=== PATIENT | male | born 1995 | race Caucasian/White ===

== ENCOUNTER 2024-08-28 21:36 | Inpatient (IN) | payer OTHER, SELFPAY ==
--- OUTSIDE RECORDS SUMMARY | 2024-08-28 21:39 | XMS_ITS | CONTINUITY OF CARE DOCUMENT ---
Author Name olinda prakash Address Unknown Organization [facility] Address [address] [place] [address] Phone [phone] Care Team Providers Care Claims Attorney Name Role Phone olinda prakash Unavailable Unavailable
--- OUTSIDE RECORDS SUMMARY | 2024-08-28 21:39 | XMS_ITS | Continuity of Care Document ---
Author Organization [facility] Address [address] [place] [address] Phone Care Team Providers Care Professor Of Sociology Name Role Phone Gonzales Phillips MD Unavailable Unavailable Advance Directives Directive Yes / No Effective Date File Name No Information Encounters Encounter Description Practice Location Reason(s) For Visit Diagnoses Date Provider Providers Copied on Encounter [facility], [address], [place], [place], [id number], [place] tel:[phone] [address] [facility] No Information 1 6 Jacqueline Rolon. [address], [place], [place], [address], [place]. tel:[phone] Family History Family Member Type Diagnosis Age At Onset No Information Payers Payer name Insurance type Covered alliance party ID Authoriza tion(s) Medicaid [facility] [id number] Social History Type Description Quantity Date Captured Comments Sex Male Smoking Status No Information Chief Complaint And Reason For Visit No Information Reason For Referral Reason For Referral No Information History Of Present Illness Encounter Date Complaint History Of Prese nt Illness No Information Functional Status Date Functional Assessmen t No Information Instructions Date Instruction Additional Infor mation No Information Assessments Type Assessment Date No Information Patient Care Teams Name Effective Dates (start - stop) Status Members No Information
[2024-08-28 21:42] VITALS: BP 117/49; PULSE 99; RESP 16; TEMP 36.9; O2SAT 92
--- NOTE | 2024-08-28 21:59 | PC.NURSE ---
vrbo narcan 0.4 x 2 doses intranasal
[2024-08-28] MEDS: NALOXONE HCL 0.4 MG/ML VIAL 0.8 MG (22:00)
[2024-08-28 22:05] VITALS: PULSE 107; PULSE 97; RESP 13; RESP 16; O2SAT 98
[2024-08-28 22:12] VITALS: BP 133/76
--- NOTE | 2024-08-28 22:15 | ED.GENADULT ---
HPI - General Adult General Chief complaint: Overdose Stated complaint: Drug use-Fentanyl/Speed ball Time Seen by Provider: 08/28/24 21:59 History of Present Illness HPI narrative: Patient is a 29-year-old male who presents emergency department this evening after being pulled over by PD for driving erratically. Patient was noted to be altered and was brought to our facility for further evaluation due to drug abuse/overdose. Per report, they did find a speedball inpatient belongings. Patient does appear to be under the influence of drugs with pinpoint pupils. Patient does have multiple areas of cellulitis to his bilateral forearms where he states that he injected IV drugs. States that he injects whatever he can get his hands on. He will respond to touch. Related Data Allergies Allergy/AdvReac Type Severity Reaction Status Date / Time No Known Allergies Allergy Unverified 03/05/23 11:24 Review of Systems Review of Systems: All systems are reviewed and are negative unless stated otherwise in the HPI. [facility] Social History Social History Substance use type: crack/cocaine, heroin, amphetamines, sedatives, opiates and methamphetamine Exam Narrative: General: Alert, awake, afebrile, drowsy, intoxicated/under the influence of drugs. HEENT: PERRL and pin point, no rhinorrhea, no post nasal drip, oropharynx clear. Neck: Trachea midline, no JVD, no lymphadenopathy. Cardiovascular: Regular rate and rhythm, no murmurs, rubs or gallops, no peripheral edema. Respiratory: Clear to auscultation bilaterally, no tachypnea, no wheezing, no rhonchi, no rubs, no respiratory distress. Abdomen: Soft, nontender, nondistended, no rebound, no guarding, no peritoneal signs. Musculoskeletal: No joint swelling or deformity, normal muscle tone. Skin: Wounds to the bilateral arms consistent with cellulitis multiple small abscesses were patient injected IV drugs. Psychiatric: Under the influence of drugs, drowsy, will respond to name and will answer some questions then will doze off, non combative. Neurological: Alert and oriented to person and place. Follows some commands. No focal deficits within the limitations of the neurological examination. Course Vital Signs Vital signs: Vital Signs Temperature 98.5 F 08/28/24 21:42 Pulse Rate 99 08/28/24 21:42 Respiratory Rate 16 08/28/24 21:42 Blood Pressure 117/49 L 08/28/24 21:42 Pulse Oximetry 92 08/28/24 21:42 Oxygen Delivery Room Air 08/28/24 21:42 Temperature 98.5 F 08/28/24 21:42 Pulse Rate 73 08/29/24 02:15 Respiratory Rate 23 H 08/29/24 02:15 Blood Pressure 139/66 08/29/24 02:15 Pulse Oximetry 96 08/29/24 02:15 Oxygen Delivery Room Air 08/28/24 22:05 Medical Decision Making MDM Narrative Medical decision making narrative: The patient was evaluated by myself in the emergency department. History is obtained from patient who is an independent historian and physical exam was performed. External medical records were reviewed at this time. IV was established and pertinent tests were ordered. Patient was administered a total of 0 0.8 of intranasal Narcan and 2 mg of IV Narcan with improvement of his symptoms. EKG was obtained which revealed sinus rhythm rate of 80 beats per minute, no evidence of acute ischemia. EKG was independently interpreted by me and is currently pending official cardiology read. Laboratory results obtained revealing no acute process. Urinalysis revealed trace ketones, urine drug screen positive for opiates and benzos. ABG revealed a CO2 of 40, PO2 of 69 O2 saturation 94.4. Differential diagnosis considerations include polysubstance intoxication. Overdose, drug intoxication. Comorbidities impacting this visit include history of IV drug use. I have evaluated and discussed social determinants of health with the patient that could potentially impact subsequent diagnosis and treatment plans. On repeat assessment of the patient, reevaluation revealed that the patient is doing well and is in no acute distress. Patient symptoms have improved since he arrived to our emergency department. Repeat vital signs were all reviewed and noted to be stable. Case was discussed with the on-call hospitalist Dr. Page and the on-call professor criminal justice Dr. Martel at 0332 who accepted IMU admission. Patient was admitted in stable condition. Vital Signs Vital Signs: Vital Signs Temperature 98.5 F 08/28/24 21:42 Pulse Rate 99 08/28/24 21:42 Respiratory Rate 16 08/28/24 21:42 Blood Pressure 117/49 L 08/28/24 21:42 Pulse Oximetry 92 08/28/24 21:42 Oxygen Delivery Room Air 08/28/24 21:42 Temperature 98.5 F 08/28/24 21:42 Pulse Rate 73 08/29/24 02:15 Respiratory Rate 23 H 08/29/24 02:15 Blood Pressure 139/66 08/29/24 02:15 Pulse Oximetry 96 08/29/24 02:15 Oxygen Delivery Room Air 08/28/24 22:05 Lab Data 08/28/24 22:11 08/28/24 22:11 Labs: Lab Results 08/28/24 08/28/24 08/29/24 Range/Units 22:11 23:25 03:47 WBC 10.2 H (4.5-10.0) K/mm3 RBC 4.70 (4.6-6.20) M/mm3 Hgb 13.6 L (14.0-18.0) g/dL Hct 43.0 (42.0-52.0) % MCV 91.5 (80-100) fl MCH 28.9 (26-34) pg MCHC 31.6 L (32-36) g/dl RDW 13.1 (11.5-14.5) % Plt Count 313 (150-375) k/mm3 MPV 10.5 H (7.4-10.4) fl Immature Gran % (Auto) 0.3 (0-0.5) % Neut % (Auto) 70.8 (45.5-73.1) % Lymph % (Auto) 22.3 (18.3-44.2) % Rich % (Auto) 5.3 (2.6-8.5) % Eos % (Auto) 1.0 (0-4.4) % Baso % (Auto) 0.3 (0.2-1.2) % Lymph # (Auto) 2.28 (0.9-3.2) K/mm3 Rich # (Auto) 0.5 (0.1-0.6) K/mm3 Eos # (Auto) 0.1 (0-0.3) K/mm3 Baso # (Auto) 0.0 (0.0-0.1) K/mm3 Abs Immat Gran (auto) 0.03 (0.00-0.031) K/mm3 Absolute Neuts (auto) 7.3 H (1.3-6.7) K/mm3 Absolute Nucleated RBC 0.000 (0.0-0.012) K/mm3 Nucleated RBC % 0.0 (0.0-0.2) % % Immature Plt Fraction 4.5 (0.9-11.2) % Methemoglobin 0.2 (0-1.5) %THb Sodium 139 (137-145) mmol/L Potassium 4.4 (3.4-5.0) mmol/L Chloride 107 (98-107) mmol/L Carbon Dioxide 21 L (22-30) mmol/L Anion Gap 11 (4-12) mmol/L BUN 9 (9-20) mg/dL Creatinine 0.89 (0.7-1.3) mg/dL Estim Creat Clear Calc 116 ml/min Estimated GFR > 60 (59 - ) Glucose 110 (65-110) mg/dL Calcium 9.5 (8.4-10.2) mg/dL Magnesium 2.0 (1.6-2.3) mg/dL Total Bilirubin 0.5 (0.2-1.3) mg/dL AST 33 (17-59) U/L ALT 32 (6-50) U/L Alkaline Phosphatase 72 (38-126) U/L Total Protein 7.6 (6.3-8.2) g/dL Albumin 4.0 (3.5-5.1) g/dL Urine Color Dark yellow (Yellow) Urine Appearance Clear (Clear) Urine pH 7.5 (5.0-9.0) Ur Specific [place] 1.024 (1.001-1.035) Urine Protein Negative (Negative) mg/dL Urine Glucose (UA) Negative (Negative) mg/dL Urine Ketones Trace H (Negative) mg/dL Ur Blood (Man) Negative (Negative) Urine Nitrate Negative (Negative) Urine Bilirubin Negative (Negative) Urine Urobilinogen 1.0 (<2.0) mg/dL Leukocyte Esterase Rfl Negative (Negative) ALEXIS/UL Salicylates < 1.0 L (2-20) mg/dL Urine Opiates Screen Positive A (Negative) Urine Methadone Screen Negative (Negative) Acetaminophen < 10 L (10-30) ug/mL Ur Barbiturates Screen Negative (Negative) Ur Phencyclidine Scrn Negative (Negative) Ur Amphetamine Screen Positive (Negative) U Benzodiazepines Scrn Positive A (Negative) Urine Cocaine Screen Negative (Negative) U Cannabinoids Screen Negative (Negative) Ethyl Alcohol < 10 (<10) mg/dL ABG Data ABG results: 08/29/24 03:47 Puncture Site Right radial ABG pH 7.423 ABG pCO2 40.8 ABG pO2 69.9 L ABG PO2/FiO2 Ratio 3.33 ABG HCO3 26.0 ABG O2 Saturation 94.4 L ABG O2 Content 19.0 ABG Base Excess 1.5 A-a Gradient 31.0 Oxyhemoglobin 90.5 Carboxyhemoglobin 3.5 H Reduced Hemoglobin 5.8 H Total Hemoglobin 14.9 O2 Delivery Device Room air O2 Liters/Min Not Reportable FiO2 21 Discharge Plan Discharge Clinical Impression: Drug overdose, Opiate overdose Patient Disposition: Still a Patient Condition: Improved Patient Language: Urdu Follow-up/Referrals: UNKNOWN,DOCTOR [Primary Care Provider] - Time of Disposition: 04:02
[2024-08-28 22:19] LABS: Basophils Percent Auto 0.3 % (0.2-1.2); Eosinophils Absolute Auto 0.1 K/mm3 (0-0.3); Hemoglobin 13.6 g/dL (14.0-18.0); Immature Granulocyte Absolute 0.03 K/mm3 (0.00-0.031); Immature Granulocyte Percent A 0.3 % (0-0.5); Immature Platelet Fraction Pct 4.5 % (0.9-11.2); Lymphocytes Absolute Auto 2.28 K/mm3 (0.9-3.2); Lymphocytes Percent Auto 22.3 % (18.3-44.2); Mean Corpuscular HGB Conc 31.6 g/dl (32-36); Mean Corpuscular Hemoglobin 28.9 pg (26-34); Mean Corpuscular Volume 91.5 fl (80-100); Mean Platelet Volume 10.5 fl (7.4-10.4); Monocytes Absolute Auto 0.5 K/mm3 (0.1-0.6); Monocytes Percent Auto 5.3 % (2.6-8.5); Neutrophils Absolute Auto 7.3 K/mm3 (1.3-6.7); Neutrophils Percent Auto 70.8 % (45.5-73.1); Platelet Count Result 313 k/mm3 (150-375); Red Cell Distribution Width 13.1 % (11.5-14.5); White Blood Count 10.2 K/mm3 (4.5-10.0)
[2024-08-28 22:27] LABS: Acetaminophen < 10 ug/mL (10-30); Ethanol < 10 mg/dL (<10); Salicylate < 1.0 mg/dL (2-20)
[2024-08-28 22:30] LABS: Alanine Aminotransferase 32 U/L (6-50); Alkaline Phosphatase 72 U/L (38-126); Anion Gap 11 mmol/L (4-12); Aspartate Amino Transferase 33 U/L (17-59); Bilirubin,Total 0.5 mg/dL (0.2-1.3); Blood Urea Nitrogen 9 mg/dL (9-20); Calcium 9.5 mg/dL (8.4-10.2); Carbon Dioxide 21 mmol/L (22-30); Chloride 107 mmol/L (98-107); Estimated CRCL calculation 116 ml/min; Estimated Glomerular Filt Rate > 60; Glucose 110 mg/dL (65-110); Potassium 4.4 mmol/L (3.4-5.0); Sodium 139 mmol/L (137-145); Total Protein 7.6 g/dL (6.3-8.2)
[2024-08-28 22:31] VITALS: BP 101/57; PULSE 86; RESP 18; O2SAT 97
--- OUTSIDE RECORDS SUMMARY | 2024-08-28 22:37 | XMS_ITS | Continuity of Care Document ---
Author Organization [facility] Address [address] [place] [address] Phone Care Team Providers Care Senior Formulation Scientist Name Role Phone Gonzales Phillips MD Unavailable Unavailable Advance Directives Directive Yes / No Effective Date File Name No Information Encounters Encounter Description Practice Location Reason(s) For Visit Diagnoses Date Provider Providers Copied on Encounter [facility], [address], [place], [place], [id number], [place] tel:[phone] [address] [facility] No Information 1 6 Jacqueline Rolon. [address], [place], [place], [address], [place]. tel:[phone] Family History Family Member Type Diagnosis Age At Onset No Information Payers Payer name Insurance type Covered republican ID Authoriza tion(s) Medicaid [facility] [id number] Social History Type Description Quantity Date Captured [...]
--- OUTSIDE RECORDS SUMMARY | 2024-08-28 22:37 | XMS_ITS | CONTINUITY OF CARE DOCUMENT ---
Author Name olinda prakash Address Unknown Organization [facility] Address [address] [place] [address] Phone [phone] Care Team Providers Care Sports Official Name Role Phone olinda prakash Unavailable Unavailable
--- NOTE | 2024-08-28 22:43 | ECG_ITS ---
Test Date: 2024-08-28 23:13:29 Measurements Intervals [place] Rate: 80 P: 9 ME: 163 QRS: 43 QRSD: 93 T: 21 QT: 366 QTc: 424 Interpretive Statements SINUS RHYTHM MINIMAL Q WAVES- INFERIOR LEADS BORDERLINE ECG No previous ECG available for comparison Electronically Signed On 08-29-2024 06:02:05 CDT by Vinny May D.O.
[2024-08-28 22:45] VITALS: BP 101/57; PULSE 84; RESP 16; O2SAT 96
[2024-08-28] MEDS: NALOXONE HCL INJ 2 MG/2 ML AMP 1 MG IV PUSH (23:24)
[2024-08-28 23:33] LABS: Add Urine Microscopic? YES; Appearance Urine Clear (Clear); Bilirubin Urine Negative (Negative); Blood Urine Negative (Negative); Color Urine Dark Yellow (Yellow); Glucose Urine UA Negative (Negative); Ketones Urine Trace mg/dL (Negative); Leukocyte Esterase Ur Negative LEU/UL (Negative); Nitrate Urine Negative (Negative); Protein Urine Negative (Negative); Specific Grav Ur 1.024 (1.001-1.035); pH Urine 7.5 (5.0-9.0)
--- NOTE | 2024-08-28 23:57 | PC.NURSE ---
upon several RNs and phlebotomy attempting to get blood cultures pt became increasingly combative and stating I just want to leave STOP. security at bedside to help with patient aggression. mtuliple attempts were tried for blood cultures and unsuccessful at this time. pt was unable to answer orientation questions correctly at this time and without prolonged hesitation. edp dr. Justice aware and at bedside and stated patient is unable to leave at this time due to not being stable.
[2024-08-29] VITALS (21 sets, daily range): BP systolic 113–146; BP diastolic 52–78; PULSE 62–87; RESP 17–26; TEMP 36.2–36.4; O2SAT 93–99; BMI 32.2
[2024-08-29] LABS: Barbiturate Screen Urine Negative (Negative); Benzodiazepines Screen Urine Positive (Negative); Cannabinoid Screen Urine Negative (Negative); Cocaine Screen Urine Negative (Negative); Methadone Screen Urine Negative (Negative); Opiate Screen Urine Positive (Negative); Phencyclidine Screen Urine Negative (Negative)
[2024-08-29 00:52] LABS: Amphetamine Screen Urine Positive (Negative)
--- NOTE | 2024-08-29 00:59 | PC.NURSE ---
per verbal order by edp dr. rubio patient to not receive normal saline bolus through IV due to pharmacy stating it can lead to high risk of phlebitis. this rn stopped order for patient to receive bolus
[2024-08-29] MEDS: NALOXONE HCL INJ 2 MG/2 ML AMP 1 MG IV PUSH (02:40)
[2024-08-29 03:53] LABS: Base Excess ABG 1.5 mEq/l (+/-2.0); Carboxyhemoglobin 3.5 % THb (0-2.0); Fractional Inspired Oxygen 21 %; Methemoglobin ABG 0.2 %THb (0-1.5); Oxygen Saturation ABG 94.4 % (95.0-100.0); Oxyhemoglobin 90.5 % THb (90.0-100.0); PCO2 ABG 40.8 mmHg (35.0-45.0); PO2 ABG 69.9 mmHg (80.0-100.0); PO2 FiO2 Ratio Arterial Blood 3.33 %; Reduced Hemoglobin 5.8 %THb (0-5.0); Total Hemoglobin 14.9 g/dL (12.0-18.0); pH ABG 7.423 (7.350-7.450)
[2024-08-29 03:54] LABS: Device ROOM AIR; Modified Allen's Test Pass; Site Drawn RIGHT RADIAL
--- NOTE | 2024-08-29 06:05 | PC.NURSE ---
This patient, Chi Joyner, was admitted to IMU status, and placed in Intensive Care Unit-2. Patient/family oriented to hospital policies and general routines including ID bracelet, bed and alarms, visiting hours, pain management, procedures, bathroom and other care routines, personal items, smoking policy, room service/diet, and visiting hours. Valuables list has been completed. Information on how to activate the Rapid Response Team has been discussed. Patient/Family are encouraged to report perceived risks to care and to ask questions if they do not understand what they are told or what they should do.
[2024-08-29 11:19] LABS: Alveolar/Arterial O2 Gradient 57.1 mmHg; Fractional Inspired Oxygen 28 %; HCO3 ABG 28.4 mEq/l (22.0-26.0); Oxygen Content ABG 18.6 %vol (16.0-22.0); Oxygen Saturation ABG 96.7 % (95.0-100.0); Oxyhemoglobin 94.4 % THb (90.0-100.0); PCO2 ABG 46.4 mmHg (35.0-45.0); PO2 ABG 87.8 mmHg (80.0-100.0); PO2 FiO2 Ratio Arterial Blood 3.14 %; pH ABG 7.405 (7.350-7.450)
[2024-08-29 11:20] LABS: Device NASAL CANNULA; Modified Allen's Test Pass; Site Drawn RIGHT RADIAL
--- NOTE | 2024-08-29 15:59 | PM.IMHP ---
H&P: HPI History of Present Illness Date/Time: 08/29/24 15:59 Chief Complaint: Drug use-Fentanyl/Speed ball, OD Narrative: ER-HPI narrative: Patient is a 29-year-old male who presents emergency department this evening after being pulled over by PD for driving erratically. Patient was noted to be altered and was brought to our facility for further evaluation due to drug abuse/overdose. Per report, they did find a speedball inpatient belongings. Patient does appear to be under the influence of drugs with pinpoint pupils. Patient does have multiple areas of cellulitis to his bilateral forearms where he states that he injected IV drugs. States that he injects whatever he can get his hands on. He will respond to touch. patient still remain somnolent unable to provide any history or ROS other showing bruising and injection partida where he injects IV drugs. patient remains clinically stable, will continue to monitor Review of Systems Review of Systems: All systems are reviewed and are negative unless stated otherwise in the HPI. [facility] Family History Family History (Updated 08/29/24 @ 06:46 by Lorri Espinoza RN) Other Unknown family medical history Social History Social History Smoking packs per day: 1 Smoking cigarettes per day: 20.0 Years smoked: 5 Smoking pack-years: 5.00 Smoking status: Current every day smoker Tobacco type: cigarettes Alcohol intake: never Substance use: current Substance use type: IV drugs, methamphetamine and other Other substance usage details: speed balls Spiritual care concerns: No Meds Home Medications and Allergies Home Medications ?Medication ?Instructions ?Recorded ?Confirmed ?Type No Home Medications 08/29/24 08/29/24 History Allergies Allergy/AdvReac Type Severity Reaction Status Date / Time No Known Allergies Allergy Unverified 03/05/23 11:24 Vital Signs Vital Signs - 24 hr 08/28/24 21:42 08/28/24 22:05 08/28/24 22:05 Temperature 36.9 C Pulse Rate 99 97 Respiratory Rate 16 16 Blood Pressure 117/49 L Pulse Oximetry 92 Oxygen Delivery Room Air Oxygen Flow Rate 08/28/24 22:05 08/28/24 22:05 08/28/24 22:12 Temperature Pulse Rate 107 H Respiratory Rate 13 Blood Pressure 133/76 Pulse Oximetry 98 98 Oxygen Delivery Room Air Oxygen Flow Rate 08/28/24 22:31 08/28/24 22:45 08/29/24 00:30 Temperature Pulse Rate 86 84 80 Respiratory Rate 18 16 19 Blood Pressure 101/57 L 101/57 L 121/55 L Pulse Oximetry 97 96 94 Oxygen Delivery Oxygen Flow Rate 08/29/24 00:31 08/29/24 01:15 08/29/24 01:30 Temperature Pulse Rate 79 77 78 Respiratory Rate 20 20 26 H Blood Pressure 120/52 L 124/62 Pulse Oximetry 94 93 94 Oxygen Delivery Oxygen Flow Rate 08/29/24 01:45 08/29/24 02:00 08/29/24 02:15 Temperature Pulse Rate 75 72 73 Respiratory Rate 25 H 22 H 23 H Blood Pressure 134/77 134/69 139/66 Pulse Oximetry 97 96 Oxygen Delivery Oxygen Flow Rate 08/29/24 04:04 08/29/24 04:15 08/29/24 04:30 Temperature Pulse Rate 77 78 Respiratory Rate 23 H 21 H Blood Pressure 146/78 H 135/77 Pulse Oximetry 97 98 97 Oxygen Delivery Nasal Cannula Oxygen Flow Rate 2 08/29/24 04:45 08/29/24 05:00 08/29/24 05:15 Temperature Pulse Rate 79 79 87 Respiratory Rate 20 19 21 H Blood Pressure 141/71 H 131/73 140/72 Pulse Oximetry 97 97 97 Oxygen Delivery Oxygen Flow Rate 08/29/24 05:30 08/29/24 06:10 08/29/24 06:13 Temperature 36.4 C Pulse Rate 80 77 Respiratory Rate 20 23 H Blood Pressure 145/74 H 113/66 Pulse Oximetry 97 96 Oxygen Delivery Room Air Oxygen Flow Rate 08/29/24 08:00 08/29/24 08:00 08/29/24 08:00 Temperature 36.4 C Pulse Rate 67 62 62 Respiratory Rate 17 17 Blood Pressure 114/67 Pulse Oximetry 99 99 Oxygen Delivery Room Air Oxygen Flow Rate 08/29/24 08:25 08/29/24 10:00 08/29/24 12:00 Temperature 36.4 C Pulse Rate 71 71 Respiratory Rate 22 H Blood Pressure 123/65 Pulse Oximetry 97 99 Oxygen Delivery Room Air Oxygen Flow Rate 08/29/24 12:00 08/29/24 12:00 08/29/24 14:00 Temperature Pulse Rate 62 80 75 Respiratory Rate 17 Blood Pressure Pulse Oximetry 99 Oxygen Delivery Room Air Oxygen Flow Rate Exam Narrative: Patient is comfortable, NAD HEENT: eyes are clear and none icteric LUNGS:CTA HEART: RR S1S2 ABD: BS+, Soft and nontender Lower extremities: no edema SKIN: nonjaundiced, rt are with injection partida and bruising Neuro: grossly intact. H&P: Results Labs Labs: Short CBC 08/28/24 Range/Units 22:11 WBC 10.2 H (4.5-10.0) K/mm3 Hgb 13.6 L (14.0-18.0) g/dL Hct 43.0 (42.0-52.0) % Plt Count 313 (150-375) k/mm3 BMP 08/28/24 22:11 Sodium 139 Potassium 4.4 Chloride 107 Carbon Dioxide 21 L BUN 9 Creatinine 0.89 Glucose 110 Calcium 9.5 Liver Function 08/28/24 Range/Units 22:11 Total Bilirubin 0.5 (0.2-1.3) mg/dL AST 33 (17-59) U/L ALT 32 (6-50) U/L Alkaline Phosphatase 72 (38-126) U/L Albumin 4.0 (3.5-5.1) g/dL Urine 08/28/24 Range/Units 23:25 Urine Color Dark yellow (Yellow) Urine Appearance Clear (Clear) Urine pH 7.5 (5.0-9.0) Ur Specific [place] 1.024 (1.001-1.035) Urine Protein Negative (Negative) mg/dL Urine Glucose (UA) Negative (Negative) mg/dL Assessment and Plan Assessment and plan (1) Drug overdose: Code(s): T50.901A - Poisoning by unspecified drugs, medicaments and biological substances, accidental (unintentional), initial encounter Status: Acute (2) Opiate overdose: Code(s): T40.601A - Poisoning by unspecified narcotics, accidental (unintentional), initial encounter Status: Acute Plan ER-HPI narrative: Patient is a 29-year-old male who presents emergency department this evening after being pulled over by PD for driving erratically. Patient was noted to be altered and was brought to our facility for further evaluation due to drug abuse/overdose. Per report, they did find a speedball inpatient belongings. Patient does appear to be under the influence of drugs with pinpoint pupils. Patient does have multiple areas of cellulitis to his bilateral forearms where he states that he injected IV drugs. States that he injects whatever he can get his hands on. He will respond to touch. patient still remain somnolent unable to provide any history or ROS other showing bruising and injection partida where he injects IV drugs. patient remains clinically stable, will continue to monitor Quality VTE Prophylaxis VTE prophylaxis: mechanical ordered
--- NOTE | 2024-08-29 17:34 | PC.NURSE ---
Addendum entered by Mariano Ng RN 08/29/24 17:38: Dr Garces notified of situation' Original Note: pt states he wants to smoke cigarette. Explained to pt the risk of leaving unit due to being on capnography and telemetry. Pt insisted on leaving to smoke. Explained that he would be leaving AMA if he chose this option. the patient agreed. IV removed. Pt was Alert and oriented x 4. Pt left out of front door of hospital and asked for directions to sophia
--- NOTE | 2024-09-06 09:36 | PM.DS ---
DS: Admitting Diagnosis Discharge Date 08/29/24 Admitting Diagnosis Drug use-Fentanyl/Speed ball, OD DS: Discharge Diagnosis Discharge Diagnosis (1) Drug overdose: Code(s): T50.901A - Poisoning by unspecified drugs, medicaments and biological substances, accidental (unintentional), initial encounter Status: Acute (2) Opiate overdose: Code(s): T40.601A - Poisoning by unspecified narcotics, accidental (unintentional), initial encounter Status: Acute Plan ER-HPI narrative: Patient is a 29-year-old male who presents emergency department this evening after being pulled over by PD for driving erratically. Patient was noted to be altered and was brought to our facility for further evaluation due to drug abuse/overdose. Per report, they did find a speedball inpatient belongings. Patient does appear to be under the influence of drugs with pinpoint pupils. Patient does have multiple areas of cellulitis to his bilateral forearms where he states that he injected IV drugs. States that he injects whatever he can get his hands on. He will respond to touch. patient still remain somnolent unable to provide any history or ROS other showing bruising and injection partida where he injects IV drugs. patient remains clinically stable, will continue to monitor DS: Summary Hospital Course Hospital Course: Patient left AMA Time Spent with Patient Time attestation: Total time spent providing and/or coordinating discharge services: Discharge Plan Discharge Consulting providers: Vinny May Patient Disposition: Left Against Medical Advice Patient Instructions: Adult Overdose (ED), Opioid Use Disorder (GEN) Patient Language: Albanian Discharge Medications: No Action No Home Medications Date of admission: 08/29/24 03:58 Primary Care Provider: UNKNOWN,DOCTOR Admitting Provider: Katerine Page Attending physician on admission: Yao Garces Condition: Improved
== END 2024-08-29 17:13 | disposition left against medical advice (07) | DRG 812 ==
LOC: ANHED 08-29 04:03 → ANHICU 08-29 06:48
PROVIDERS: Admitting Provider Internal Medicine; Emergency Provider Emergency Medicine; Visit Provider Family Medicine
DX: T40.414A Poisoning by fentanyl or fentanyl analogs, undetermined, initial encounter (principal); T43.654A Poisoning by methamphetamines, undetermined, initial encounter; L03.114 Cellulitis of left upper limb; L03.113 Cellulitis of right upper limb; F17.210 Nicotine dependence, cigarettes, uncomplicated
CPT/HCPCS: 36415; 36600; 80053; 80143; 80179; 80307; 81001; 82077; 82375; 82805; 83050; 83735; 85018; 85025; 85055; 87040; 93005; 96374; 96376; 99285; J2310